=== PATIENT | female | born 2000 | race Caucasian/White ===

== ENCOUNTER 2022-07-18 21:52 | Emergency (ER) | payer BC ==
[~2022-07-18] VITALS: Ht 172.7 cm; Wt 68.2 kg
[2022-07-18 22:00] VITALS: TEMP 98.3
[2022-07-18 22:15] LABS: COLLECTION METHOD CLEAN CATCH
[2022-07-18 22:17] LABS: BASO # 0.1 K/mm3 (0.0-0.2); BASO % 0.4 % (0.0-2.0); EOS # 0.1 K/mm3 (0.0-0.7); EOS % 1.1 % (0.0-4.0); GRAN # 9.1 K/mm3 (1.4-6.5); GRAN % 72.4 % (42.2-75.2); HEMATOCRIT 40.9 % (37.0-47.0); HEMOGLOBIN 13.2 g/dl (12.5-16.0); LYMPH # 2.3 K/mm3 (1.2-3.4); LYMPH % 18.6 % (20.0-51.0); MEAN CELL VOLUME 85 fl (80.0-100.0); MEAN CORPUSCULAR HEMOGLOBIN 28 pg (27-31); MEAN CORPUSCULAR HGB CONC 32 g/dl (33.0-37.0); MEAN PLATELET VOLUME 9.2 fl (7.4-10.4); MONO # 0.9 K/mm3 (0.1-0.6); MONO % 7.2 % (1.7-9.3); PLATELET COUNT 334 K/mm3 (130-400)
[2022-07-18 22:22] LABS: SQUAMOUS EPITHELIAL 0-2 /hpf (0-10); URINE BACTERIA None Seen /hpf (NONE SEEN); URINE RBC 0-2 /hpf (0-2)
[2022-07-18 22:23] LABS: URINE APPEARANCE Clear (CLEAR/HAZY); URINE BLOOD 1+ (NEGATIVE); URINE COLOR Yellow (YELLOW); URINE GLUCOSE Negative (NEGATIVE); URINE KETONE Negative (NEGATIVE); URINE NITRATE Negative (NEGATIVE); URINE PROTEIN(semi-quant) 1+ (NEGATIVE); URINE UROBILINOGEN 0.2 E.U/dL (0.2-1.0)
[2022-07-18 22:36] LABS: BILIRUBIN,TOTAL 0.2 mg/dL (0.2-1.2); CREATININE, serum 0.8 mg/dL (0.57-1.11); POTASSIUM 3.8 mmol/L (3.5-4.5); TOTAL PROTEIN 8.1 gm/dL (6.2-8.1)
[2022-07-19] MEDS ORDERED: LEVAQUIN 750MG750 M1 PO (00:15)
[2022-07-19 01:49] VITALS: BP 111/80; PULSE 97
== END 2022-07-19 01:50 | disposition home or self-care (01) ==
LOC: COL.ER 21:52
PROVIDERS: Nurse Practitioner Primary Care
DX: N39.0 Urinary tract infection, site not specified (principal); N32.89 Other specified disorders of bladder; Z88.1 Allergy status to other antibiotic agents
CPT/HCPCS: J1885; J1956; J2405; J7030; Q9967

== ENCOUNTER 2023-06-23 10:32 | Outpatient (CLI) | payer BC ==
[2023-06-23] VITALS (10 sets, daily range): BP systolic 138–156; BP diastolic 97–108; PULSE 67–89
[~2023-06-23] VITALS: Ht 172.7 cm; Wt 75.9 kg
[~2023-06-23 10:32] MED LIST: LEVAQUIN 750MG750 M1 PO
--- NOTE | 2023-06-23 10:35 | NUR ---
1035- Pt arrives on unit ambulatory with . Sent over from office with headache and elevated BPs. 1045- Pt into bed. EFM and TOCO on. Pt denies VB/LOF/UCs. +FM. Pt states she saw floaters this morning but that has resolved. Has had headache since this morning. Denies abd pain.
[2023-06-23] MEDS ORDERED: LR 1,000 ML IV PRN (10:45)
[2023-06-23 11:25] LABS: COLLECTION METHOD CLEAN CATCH
[2023-06-23] MEDS ORDERED: NIFEdipine XL 30 MG TAB PO ONE (11:30)
[2023-06-23] MEDS ORDERED: Acetaminophen 500 MG TAB PO ONE (11:30)
[2023-06-23 11:31] LABS: HEMOGLOBIN 11.8 g/dl (12.5-16.0); MEAN CELL VOLUME 83 fl (80.0-100.0); MEAN CORPUSCULAR HEMOGLOBIN 27 pg (27-31); MEAN CORPUSCULAR HGB CONC 33 g/dl (33.0-37.0); PLATELET COUNT 216 K/mm3 (130-400); REDCELL DISTRIBUTION WIDTH-CV 13.2 % (11.5-14.5)
[2023-06-23 11:33] LABS: HEMATOCRIT 36.3 % (37.0-47.0)
[2023-06-23 11:41] LABS: PH 7.5 (5.0-8.5); URINE APPEARANCE CLEAR (CLEAR/HAZY); URINE BLOOD NEGATIVE (NEGATIVE); URINE COLOR YELLOW (YELLOW); URINE GLUCOSE NEGATIVE (NEGATIVE); URINE KETONE NEGATIVE (NEGATIVE); URINE NITRATE NEGATIVE (NEGATIVE); URINE PROTEIN(semi-quant) 3+ (NEGATIVE); URINE UROBILINOGEN 0.2 E.U/dL (0.2-1.0)
[2023-06-23 11:49] LABS: ALBUMIN 2.1 g/dL (3.5-5.0); BILIRUBIN,TOTAL 0.2 mg/dL (0.2-1.2); CALCIUM 8.7 mg/dL (8.4-10.2); CREATININE, serum 0.71 mg/dL (0.57-1.11); POTASSIUM 4.3 mEq/L (3.5-4.5); TOTAL PROTEIN 5.8 g/dl (6.2-8.1)
--- NOTE | 2023-06-23 12:15 | NUR ---
DR BOURGEOIS AT BEDSIDE TO DISCUSS POC WITH PT. DR BOURGEOIS DISCUSSES PRECAUTIONS IF PT WERE TO GO HOME. DR BOURGEOIS DISCUSSES THAT NO MATTER WHAT SHE DOES NOT WANT PT WORKING ANYMORE, FROM HERE ON OUT SHE IS ON MATERNITY LEAVE. DR BOURGEOIS DISCUSSES THAT WE WILL WATCH PT FOR ONE MORE HOUR TO MONITOR HER BLOOD PRESSURES. PT VERBALIZES UNDERSTANDING.
[2023-06-23 12:47] LABS: MUCOUS PRESENT (NOT PRESENT); URINE BACTERIA MODERATE /hpf (NONE SEEN); URINE RBC 0-2 /hpf (0-2); URINE WBC 0-2 /hpf (0-2)
[2023-06-23 12:55] LABS: ANISOCYTOSIS 1+; BAND 5 % (0-10); LYMPHOCYTE 21 % (20.0-51.0); NEUTROPHILS 69 % (42.0-75.2); POLYCHROMASIA 1+
[2023-06-23 12:56] LABS: PLATELET ESTIMATE NORMAL (NORMAL)
[2023-06-23] MEDS ORDERED: PROCARDIA XL90 MG PO (13:02)
--- NOTE | 2023-06-23 15:00 | NUR ---
1500THIS RN AND DR BOURGEOIS DISCUSS PT POC AT NURSES STATION. DR BOURGEOIS GIVES ORDER FOR PT TO BE DISCHARGED WITH REASSURANCE FROM PT. DR BOURGEOIS WANTS PT TO COME BACK TO BE EVALUATED IF SHE HAS A HEADACHE THAT IS NOT RESOLVED WITH TYLENOL, OR IF SHE HAS MORE CHANGES IN HER VISION. DR BOURGEOIS GAVE ORDER FOR PRESCRIPTIN FOR PROCARDIA XL 90 MG TO BE SENT TO [facility]. SHE WANTS PT TO TAKE MEDICATION IN THE MORNING BEFORE APPOINTMENT. DR BOURGEOIS WANTS PT TO COME TO [facility] FOR A BP CHECK TOMORROW AT [address] BOURGEOIS ASKS THIS RN TO CALL [facility] TO PUT THAT ON THE SCHEDULE. THIS RN REPEATS ORDER TO DR BOURGEOIS. 1515THIS RN DISCUSSES POC AND DISCHARGE INSTRUCTIONS WITH PT. PT VERBALIZES UNDERSTANDING. 1530PT AND SPOUSE AMBULATORY OFF UNIT.
== END 2023-06-23 15:30 | disposition home or self-care (01) ==
LOC: LDRO 10:32
PROVIDERS: Obstetrics & Gynecology
DX: O16.3 Unspecified maternal hypertension, third trimester (principal); Z3A.36 36 weeks gestation of pregnancy